=== PATIENT | male | born 1950 | race Caucasian/White ===

== ENCOUNTER 2019-01-07 10:30 | Inpatient (IN) | payer MEDICARE, BC ==
[~2019-01-07] VITALS: Ht 175.3 cm; Wt 71.2 kg
--- NOTE | 2019-01-07 10:45 | NUR ---
patient presented to the ER from home d/t OD, denies SI/HI, alert and oriented x 3, verbally responsive. on room air, breathing evenly and unlabored. denies any pain at this time. connected to the monitor and pulse ox. kept comfortable. will cotinue to monitor accordingly.
[2019-01-07] MEDS ORDERED: IV NS 0.9% 1,000 ML BAG IV ONE ×2 (11:30→14:00)
[2019-01-07 11:51] LABS: BASOPHILS % (AUTO) 0.2 % (0.0-2.0); EOSINOPHILS % (AUTO) 0.1 % (0.0-6.0); HEMATOCRIT 37 % (39-51); HEMOGLOBIN 11.9 g/dL (13.5-17.5); LYMPHOCYTES # (AUTO) 1.1 /CMM (0.8-4.8); LYMPHOCYTES % (AUTO) 21.9 % (20.0-44.0); MEAN CORPUSCULAR HGB CONC 32 g/dl (31.0-36.0); MEAN CORPUSCULAR VOLUME 113 fL (80-96); MONOCYTES # (AUTO) 0.4 /CMM (0.1-1.30); MONOCYTES % (AUTO) 8.6 % (2.0-12.0); NEUTROPHILS # (AUTO) 3.3 /CMM (1.8-8.9); NEUTROPHILS % (AUTO) 69.2 % (43.0-81.0); PLATELET COUNT (AUTO) 254 /CMM (150-450); RED BLOOD CELL COUNT(AUTO) 3.32 MIL/uL (4.5-6.0); WHITE BLOOD COUNT (AUTO) 4.8 K/uL (4.3-11.0)
[2019-01-07 11:56] LABS: CALCIUM, SERUM 8.8 mg/dL (8.5-10.1); CARBON DIOXIDE 26 mmol/L (21-32); CHLORIDE 106 mmol/L (98-107); CREATININE 1.5 mg/dL (0.6-1.3); GLUCOSE 92 mg/dL (74-106); POTASSIUM 4.9 mmol/L (3.5-5.1); SODIUM SERUM 141 mmol/L (136-145); UREA NITROGEN, BLOOD 31 mg/dL (7-18)
[2019-01-07 12:01] LABS: ALANINE AMINOTRANSFERASE 12 U/L (12-78); ALBUMIN 3.2 g/dL (3.4-5.0); ALCOHOL, BLOOD < 3 mg/dL (0-0); ALKALINE PHOSPHATASE 79 U/L (46-116); ASPARTATE AMINOTRANSFERASE 18 U/L (15-37); BILIRUBIN,DIRECT 0.1 mg/dL (0.0-0.2); BILIRUBIN,TOTAL 0.3 mg/dL (0.2-1.0); TOTAL PROTEIN, SERUM 6.2 g/dL (6.4-8.2)
--- NOTE | 2019-01-07 12:05 | NUR ---
wheeled patient to ct scan for exam.
--- NOTE | 2019-01-07 12:10 | NUR ---
patient came back from ct.
[2019-01-07 12:20] LABS: SERUM AMMONIA < 10 umol/L (11-32)
[2019-01-07 12:32] LABS: THYROID STIMULATING HORMONE 1.849 uIU/mL (0.358-3.74)
[2019-01-07 12:57] LABS: APPEARANCE,URINE Clear (CLEAR); BILIRUBIN,URINE Negative (NEGATIVE); BLOOD, URINE Negative Ery/uL (NEGATIVE); COLOR,URINE Yellow (YELLOW); KETONES,URINE Negative (NEGATIVE); LEUKOCYTE ESTERASE ,URINE Negative (NEGATIVE); NITRITE, URINE Negative (NEGATIVE); PROTEIN,URINE Negative (NEGATIVE); UGLUCOSE Negative (NEGATIVE); UROBILINOGEN,URINE 0.2 EU/dL (0.2)
[2019-01-07] MEDS ORDERED: FINA5TAB11 PO (13:54)
[2019-01-07] MEDS ORDERED: OXYC-128 PO (13:54)
[2019-01-07] MEDS ORDERED: DEXT30SU5 PO (13:54)
[2019-01-07] MEDS ORDERED: HYDR200T81 PO (13:54)
[2019-01-07] MEDS ORDERED: LAMO200T2 PO (13:54)
[2019-01-07] MEDS ORDERED: GABA-534 PO (13:54)
[2019-01-07] MEDS ORDERED: TOPI100T38 PO (13:54)
[2019-01-07] MEDS ORDERED: QUET300T2 PO (13:54)
[2019-01-07] MEDS ORDERED: ZOLP10TA2 PO (13:54)
[2019-01-07] MEDS ORDERED: ATOR10TA PO (13:54)
[2019-01-07 14:12] LABS: SALICYLATE 1.7 mg/dL (2.8-20.0)
--- NOTE | 2019-01-07 15:36 | NUR ---
GOT BED 107
--- NOTE | 2019-01-07 16:45 | NUR ---
RN NOTES RECEIVED REPORT FROM ER NURSE FOR A PATIENT COMING DIAGNOSED WITH ALTERED MENTAL STATUS ON TELEMETRY ACUITY UNDER THE SERVICE OF AMINAH EAGLE NP. ROOM PREPARED. AWAITING PATIENT'S ARRIVAL
--- NOTE | 2019-01-07 16:51 | NUR ---
wheeled patient to room 110 T via acls protocol, in no apparent distress noted.
--- NOTE | 2019-01-07 16:51 | NUR ---
RN NOTES RECEIVED PATIENT FROM ER VIA ERICK, ACCOMPANIED BY ER NURSE AND TECH, AND DAUGHTER. PATIENT AMBULATORY AND ABLE TO TRANSFER SELF TO BED.ALERT AND ORIENTED X4, ABLE TO COMMUNICATE WELL BUT IS WITHDRAWN AND SHOWS NO INTEREST ON VERBAL INTERACTION AT THIS TIME BY COVERING EYES WITH SLEEP MASK, NOT ON ANY FORM OF DISTRESS, BREATHING UNLABORED, ON ROOM AIR, SATING AT 97%, VITAL SIGNS TAKEN AND NOTED- WITHIN NORMAL RANGES. SKIN ASSESSMENT DONE, SKIN DRYNESS NOTED ON BILATERAL FEET, WITH DRESSING NOTED ON THE 2ND TOE OF THE LEFT FOOT AND LATERAL SIDE OF THE RIGHT FOOT, PATIENT "DO NOT DO ANYTHING ON MY FEET" PHOTOS NOT TAKEN SINCE PATIENT REFUSED TO HAVE DRESSING REMOVED. IV LINE ON THE LAC G20, IN PLACE AND INTACT, PATENT ON FLUSHING. PATIENT ATTACHED TO TELEMONITOR; SB HR AT 47BPM, ORIENTED TO UNIT AND USE OF CALL LIGHT. SAFETY MEASURES OBSERVED AND MAINTAINED. CALL LIGHT PPLACED WITHIN REACH, WILL CONTINUE TO MONITOR PATIENT
[2019-01-07 17:36] VITALS: BP 109/60
--- NOTE | 2019-01-07 18:02 | NUR ---
RN NOTES PAGED GEORGE BURR NP PATIENT IN AT THE UNIT AND ASKED FOR ADMITTING ORDERS
--- NOTE | 2019-01-07 19:39 | NUR ---
RN NOTES ENDORSED PATIENT FOR CONTINUITY OF CARE. NO SIGNIFICANT CHANGES SINCE TRANSFER FROM THE UNIT. ALL NURSING NEEDS ATTENDED AND MET. SAFETY MEASURES IN PLACE ALL THE TIME. CALL LIGHT WITHIN REACH AT ALL TIMES. PAGED EXCHANGE FOR ADMITTING ORDERS. INCOMING SHIFT AWARE
[2019-01-07 20:00] VITALS: BP 90/54
--- NOTE | 2019-01-07 20:00 | NUR ---
WELCOME WAGON HOSTESS OPENING NOTES RECEIVED REPORT FROM NATALIYA RN. PATIENT A/A/O X3, ABLE TO MAKE NEEDS KNOWN & STATE PAIN. BREATHING EVEN & UNLABORED, TOLERATING ROOM AIR. ON TELE W/ SINUS NAZANIN W/ BBB, HR 52. RIGHT HAND IV INTACT & PATENT W/ DRESSING CDI & IVF NS INFUSING WELL @ 100 ML/HR. DENIES ANY PAIN OR DISCOMFORT @ THIS TIME. SAFETY MEASURES IN PLACE W/ SIDE RAILS UP & CALL LIGHT WITHIN REACH. INSTRUCTED TO CALL FOR ASSISTANCE. WILL CONTINUE TO MONITOR.
[2019-01-07] MEDS ORDERED: ACETAMINOPHEN 325 MG TABLET PO PRN (20:30)
[2019-01-07] MEDS ORDERED: Z GUARD REMEDY 2 OZ OINT TP PRN (20:30)
[2019-01-07] MEDS ORDERED: MAGNESIUM HYDROXIDE 30 ML UDC PO PRN (20:30)
[2019-01-07] MEDS ORDERED: ONDANSETRON HCL/PF 4 MG/2 ML VIAL IVP PRN (20:30)
[2019-01-07] MEDS ORDERED: FINASTERIDE (5 MG) 5 MG TABLET PO SCH (21:00)
[2019-01-07] MEDS ORDERED: HYDROXYUREA 500 MG CAPSULE PO ONE (21:00)
[2019-01-07] MEDS ORDERED: QUETIAPINE FUMARATE 100 MG TABLET PO SCH (22:00)
[2019-01-07] MEDS ORDERED: HYDROXYUREA 500 MG CAPSULE ONE (22:31)
[2019-01-07] MEDS: GABAPENTIN 300 MG CAPSULE PO SCH (22:32)
[2019-01-07] MEDS: LamoTRIgine 100 MG TABLET PO SCH (22:33)
[2019-01-07] MEDS: HYDROXYCHLOROQUINE 200 MG TABLET PO SCH (22:33)
[2019-01-07] MEDS ORDERED: ASPIRIN 81 MG TAB.CHEW PO SCH (23:30)
[2019-01-07] MEDS ORDERED: TOPIRAMATE 100 MG TABLET PO SCH (23:30)
[2019-01-08 04:00] VITALS: BP 106/58
[2019-01-08] MEDS ORDERED: IBUPROFEN 400 MG TABLET PO PRN (05:00)
[2019-01-08 05:20] VITALS: BP 90/54
[2019-01-08] MEDS: IV NS 0.9% 1,000 ML IV PRN ×2 (05:44→09:38)
[2019-01-08 05:49] LABS: BASOPHILS % (AUTO) 0.2 % (0.0-2.0); EOSINOPHILS % (AUTO) 0.5 % (0.0-6.0); HEMATOCRIT 32 % (39-51); HEMOGLOBIN 10.4 g/dL (13.5-17.5); LYMPHOCYTES # (AUTO) 1.3 /CMM (0.8-4.8); LYMPHOCYTES % (AUTO) 34.9 % (20.0-44.0); MEAN CORPUSCULAR HGB CONC 32 g/dl (31.0-36.0); MEAN CORPUSCULAR VOLUME 111 fL (80-96); MONOCYTES # (AUTO) 0.3 /CMM (0.1-1.30); MONOCYTES % (AUTO) 8.8 % (2.0-12.0); NEUTROPHILS # (AUTO) 2.1 /CMM (1.8-8.9); NEUTROPHILS % (AUTO) 55.6 % (43.0-81.0); PLATELET COUNT (AUTO) 214 /CMM (150-450); RED BLOOD CELL COUNT(AUTO) 2.88 MIL/uL (4.5-6.0); WHITE BLOOD COUNT (AUTO) 3.8 K/uL (4.3-11.0)
[2019-01-08 06:06] LABS: CREATININE 1.3 mg/dL (0.6-1.3); PHOSPHORUS 3.3 mg/dL (2.5-4.9); POTASSIUM 4.6 mmol/L (3.5-5.1)
[2019-01-08 08:00] VITALS: BP 90/52
--- NOTE | 2019-01-08 08:04 | NUR ---
PHOTOENGRAVING MACHINE OPERATOR/TENDER NOTE RECEIVED PATIENT FROM NIGHT RN. PT A/O X4, AMBULATORY. NO COMPLAINTS OR S/S OF DISTRESS. V/S WNL. IV LINES PATENT AND INTACT. SAFETY MEASURES IN PLACE. WILL CONTINUE TO MONITOR.
[2019-01-08] MEDS: LamoTRIgine 100 MG TABLET PO SCH ×2 (08:41→09:00)
[2019-01-08] MEDS: HYDROXYCHLOROQUINE 200 MG TABLET PO SCH (08:41)
[2019-01-08] MEDS: GABAPENTIN 300 MG CAPSULE PO SCH ×2 (08:42→12:55)
[2019-01-08] MEDS ORDERED: TOPIRAMATE 100 MG TABLET PO SCH (09:00)
--- NOTE | 2019-01-08 10:31 | NUR ---
INGOT SUPERVISOR NOTE AMBULATED WELL WITH PT
[2019-01-08 12:00] VITALS: BP 103/58
[2019-01-08 12:47] VITALS: BP 103/58
--- NOTE | 2019-01-08 14:18 | NUR ---
DIRECTOR PEDIATRIC NOTE GEORGE RN BOOM CAT OPERATOR AT BEDSIDE WITH ORDER TO D\C HOME ,ORDER CARRIER OUT
--- NOTE | 2019-01-08 14:18 | NUR ---
OIL REFINERY OPERATOR NOTE DISCHARGE INSTRUCTION GIVEN HL REMOVED, TELE REMOVED ,INSTRUCTED HOW APRYL TAKE HOME MEDS AND POSSIBLE SIDE EFFECTS , INSTRUCTED TO F\U WITH PRIMARY CARE DOCTOR ,AWAITING FOR
--- NOTE | 2019-01-08 15:17 | NUR ---
CONTROL PANEL TESTER NOTE TELE REMOVED , AT BEDSIDE ,LEFT HOSPITAL WITH STABLE CONDITION, BY WALKING IN LOBBY BELONGING SIGNED
[2019-01-08] MEDS ORDERED: ATORVASTATIN 10 MG TABLET PO SCH (18:00)
== END 2019-01-08 15:10 | disposition home or self-care (01) | DRG 91 ==
LOC: ER 10:32 → TELE1 15:57
PROVIDERS: ADMIT Nurse Practitioner Acute Care; ATTEND Nurse Practitioner Acute Care
DX: G92 Toxic encephalopathy (principal); N17.0 Acute kidney failure with tubular necrosis; D47.3 Essential (hemorrhagic) thrombocythemia; D63.8 Anemia in other chronic diseases classified elsewhere; F31.9 Bipolar disorder, unspecified; T50.995A Adverse effect of other drugs, medicaments and biological substances, initial encounter; Y92.009 Unspecified place in unspecified non-institutional (private) residence as the place of occurrence of the external cause; N18.9 Chronic kidney disease, unspecified; N40.0 Benign prostatic hyperplasia without lower urinary tract symptoms
CPT/HCPCS: 36415; 70450-TC; 71045-TC; 80048-TC; 80061-TC; 80076-TC; 80305; 81000-TC; 82140-TC; 83605-TC; 83735-TC; 83880; 84100-TC; 84443-TC; 84484-TC; 85025-TC; 85730-TC; 87081-TC; 87400; G0378; G0480; J7030